=== PATIENT | female | born 1945 | race Caucasian/White ===

== ENCOUNTER 2021-02-21 22:38 | Emergency (ER) | payer MEDICARE, BC, SELFPAY ==
--- NOTE | ~2021-02-21 | CT_ITS ---
EXAMINATION: CT HEAD WITHOUT CONTRAST CT CERVICAL SPINE WITHOUT CONTRAST CT MAXILLOFACIAL WITHOUT CONTRAST CLINICAL INFORMATION: Fall. On anticoagulation. COMPARISON: None TECHNIQUE: Contiguous axial imaging was performed from the skull base to vertex without intravenous administration of contrast. Contiguous axial CT images of the cervical spine were obtained without contrast. Contiguous axial CT images of the maxillofacial bones were obtained without contrast. Sagittal and coronal reformats were provided and reviewed. This CT examination was performed using dose optimization techniques as appropriate, variously including the following: *Automated exposure control. *Adjustment of mA and/or kV according to patient size (this includes techniques or standardized protocols for targeted exams where dose is matched to indication/reason for exam; i.e. extremities or head). *Use of iterative reconstruction technique. DLP: 1668 mGy-cm FINDINGS: HEAD: There is no evidence of acute intracranial hemorrhage or territorial infarction. No abnormal mass effect or midline shift is seen. Gjzz-qc-[id number] matter differentiation is well preserved. No extra-axial fluid collections are identified. The ventricles are normal in size. There is no abnormal attenuation within the brain parenchyma. No acute fracture. Soft tissue swelling overlying the left orbit and left maxilla. The mastoid air cells and visualized portions of the paranasal sinuses are well aerated. CERVICAL SPINE: Straightening of the normal cervical lordosis, which may be positional or related to muscular spasm. No acute fracture. Grade 1 anterolisthesis of C2 on C3 and C3 on C4 which appears chronic. No loss of vertebral body height. Multilevel loss of intervertebral disc height with endplate degenerative changes and endplate osteophytes. Prominent multilevel bilateral facet arthropathy. No lytic or blastic osseous lesion. Unremarkable prevertebral soft tissues. No abnormal soft tissue mass or fluid collection. Thyroid within normal limits. Visualized lung apices are clear. [id number] multilevel bilateral neural foraminal stenosis. MAXILLOFACIAL: Prominent soft tissue swelling overlying the left side of the face including the maxillary and orbital regions. No large hematoma. There is no acute maxillofacial fracture. The pterygoid plates are intact. The zygomatic arches are intact. The lamina papyracea are intact. The orbital rims are intact. The paranasal sinuses are well-aerated. No air-fluid levels are seen. There is mild rightward deviation of the nasal septum. The ostiomeatal complexes are clear. The lamina papyracea are intact. The ethmoid roofs are symmetric. The carotid canals are normally covered by bone. There is no maxillary periapical disease. The mastoid air cells and visualized middle ear cavities are well-aerated. The orbits are normal. Severe left temporomandibular joint osteoarthritis with bony remodeling. The imaged portions of the brain demonstrate no acute abnormality. CT/CT cervical spine wo con IMPRESSION: HEAD: No acute intracranial hemorrhage or mass effect. CERVICAL SPINE: No acute fracture or subluxation. Straightening of the normal cervical lordosis which may be positional or related to muscular spasm. Chronic grade 1 anterolisthesis of C2 on C3 and C3 on C4. Prominent multilevel degenerative disc disease with bilateral facet arthropathy and [id number] multilevel bilateral neural foraminal stenosis. MAXILLOFACIAL: Prominent left-sided facial swelling overlying the maxilla and orbit. No large soft tissue hematoma. No fracture. Severe left temporomandibular joint osteoarthritis.
[2021-02-21 22:47] VITALS: BP 118/78; PULSE 74; O2SAT 94
--- NOTE | 2021-02-21 22:51 | PC.NURSE ---
pt just moved to area, family not around here. will need assistance in getting home. Takes Dimple
--- NOTE | 2021-02-21 23:36 | ED.FALL ---
HPI - Fall General Chief Complaint: Fall Stated Complaint: FAll Time Seen by Provider: 02/21/21 22:49 Source: patient Mode of arrival: EMS Limitations: no limitations History of Present Illness HPI Narrative: Patient is on Brilinta had a mechanical fall while trying to turn on the light lost balance and fell hitting her left cheek with a chair came with swelling of the left cheekbone no loss of consciousness injuries no loss of consciousness no seizures patient otherwise feels okay vision is normal vision is normal Related Data Allergies Allergy/AdvReac Type Severity Reaction Status Date / Time hydromorphone [From Dilaudid] Allergy Difficulty Verified 02/21/21 23:46 Breathing Iodinated Contrast Media Allergy Anaphylaxis Verified 02/21/21 23:46 [Contrast Dye] Review of Systems Review of Systems: Yes all other systems are reviewed and are negative [facility] Past Medical History Medical History (Updated 02/22/21 @ 00:06 by Willian Mcginnis MD) Arthritis Hypertension Myocardial infarct Surgical History (Updated 02/21/21 @ 23:44 by Mechelle Rutherford) Stented coronary artery Social History Social History Patient Tobacco Use Status: Never used Tobacco Advance Directives: No Physical Exam Vital Signs: Vital Signs: Last Vital Signs Temp 97.7 F 02/21/21 23:41 Pulse 64 02/21/21 23:41 Resp 16 02/21/21 23:41 BP 150/72 H 02/21/21 23:41 Pulse Ox 98 02/21/21 23:41 Body Mass Index 43.9 Appearance: Alert. Oriented X3. No acute distress. Eyes: PERRLA, No Nystagmus HEENT: Pharynx normal. Oral Mucosa moist swelling of the left cheek bone Neck: Normal inspection. Neck supple. CVS: Normal heart rate and rhythm. Pulses normal. Respiratory: No respiratory distress. Equal air entry bilateral, Abdomen: Soft and nontender. Bowel sounds are present, no mass palpable, no CVA tenderness Skin: Skin warm and dry. Normal skin color. Normal skin turgor. Extremities: No lower extremity edema. No calf tenderness Neuro: Oriented X 3. No motor deficit. No sensory deficit.No cerebellar signs , cranial nerves II-XII intact HENMT: Head images: 1. Ecchymosis of left cheek wound EOMI PERRLA, teeth are intact nontender MDM - Fall MDM Narrative Medical decision making narrative: Patient Status post mechanical fall CT scan of the face head and C-spine negative except for ecchymosis on the left face. Will Discharge patient home Discharge Plan Discharge Clinical Impression: Fall Qualifiers: Encounter type: initial encounter Qualified Code(s): W19.XXXA - Unspecified fall, initial encounter Facial bruising Qualifiers: Encounter type: initial encounter Qualified Code(s): S00.83XA - Contusion of other part of head, initial encounter Patient Disposition: Home, Self-Care Instructions: Fall Prevention (ED), Facial Contusion (ED) Additional Instructions: Apply ice pack Care as advised Follow-up with PCP if any concerns
[2021-02-21 23:41] VITALS: BP 150/72; PULSE 64; RESP 16; TEMP 36.5; O2SAT 98; BMI 43.9
--- NOTE | 2021-02-21 23:47 | PC.NURSE ---
Pt returns from CT, resting in bed, awaiting results, denies pain.
[2021-02-22 00:58] VITALS: RESP 20
--- NOTE | 2021-02-22 00:58 | PC.NURSE ---
EMS at bedside for transport.
== END 2021-02-22 01:00 | disposition home or self-care (01) ==
LOC: HO.ED 02-22 00:21
PROVIDERS: Emergency Provider Internal Medicine
DX: S00.83XA Contusion of other part of head, initial encounter (principal); I10 Essential (primary) hypertension; I25.2 Old myocardial infarction; W18.30XA Fall on same level, unspecified, initial encounter; Y93.9 Activity, unspecified; Y92.9 Unspecified place or not applicable; Y99.9 Unspecified external cause status
CPT/HCPCS: 70450; 70486; 72125; 99284

== ENCOUNTER 2022-05-12 07:40 | Emergency (ER) | payer MEDICARE, BC, SELFPAY ==
[2022-05-12 07:48] VITALS: BP 147/77; PULSE 73; RESP 18; TEMP 36.3; BMI 44.8
--- OUTSIDE RECORDS SUMMARY | 2022-05-12 07:51 | XMS_ITS | Continuity of Care Document ---
:1945 Author Organization [facility] Address [address] [place] [address]- Care Team Providers Name Role Phone Jhonny RIVAS, Page Wise Primary Care Physician [phone] [place] [facility] 01/05/21 - 01/06/[address] [address] Discharge Disposition: A-D/C Home Attending Physician: Corey Saenz MD Admitting Physician: Corey Saenz MD Referring Physician: Corey Saenz MD Allergies, Adverse Reactions, Alerts Substance Reaction Severity Status Dilaudid pass out Active contrast media (iodine-based) anaphylaxis Ac tive Immunizations Given and Recorded Vaccine Date Status Refusal Reason SARS-CoV-2 (COVID-19) mRNA-1273 vaccine 07/15/20 Given SARS-CoV-2 (COVID-19) mRNA-1273 vaccine 06/17/20 Given Medications Adderall XR 15 mg oral capsule, extended release 1 capsule = 15 mg, By Mouth, Daily in AM, 0 Refills, Maintenance, 12/24/20 11:53:00 EDT, ER Capsule,Partial fill upon patient request if the prescription is for a schedule II opioid drug. Start Date: 12/24/20 Status: OrderedAspirin Low Dose 81 mg oral delayed release tablet 1 tablet = 81 mg, By Mouth, Daily, 0 Refills, Maintenance, 09/24/20 14:34:00 EDT, Partial fill upon patient request if the prescription is for a schedule II opioid drug. Start Date: 09/24/20 Status: OrderedBrilinta (ticagrelor) 60 mg oral tablet 1 tablet = 60 mg, By Mouth, 2 times a day, # 60 tablet, 0 Refills, Maintenance, 09/24/20 14:35:00 EDT, Tablet, Partial fill upon patient request if the prescription is for a schedule II opioid drug. Start Date: 09/24/20 Status: Orderedduloxetine 60 mg oral enteric coated capsule 1 capsule = 60 mg, By Mouth, 2 times a day, do not crush or chew, # 60 capsule, 0 Refills, Maintenance, 09/24/20 14:35:00 EDT, CR Capsule, Partial fill upon patient request if the prescription is for aschedule II opioid drug. Start Date: 09/24/20 Status: Orderedgabapentin 300 mg oral capsule 300 mg, 1, capsule, By Mouth, 2 times a day, Refills 0, Maintenance, 09/24/20 14:41:00 EDT, Partial fill upon patient request if the prescription is for a schedule II opioid drug. Start Date: 09/24/20 Status: Orderedhydroxychloroquine 200 mg oral tablet 400 mg, 2, tablet, By Mouth, Daily, # 60 tablet, Refills 0, Maintenance, 09/24/20 14:36:00 EDT, Partial fill upon patient request if the prescription is for a schedule II opioid drug. Start Date: 09/24/20 Status: Orderedisosorbide mononitrate 60 mg oral tablet, extended release 60 mg, 1, tablet, By Mouth, Daily in AM, # 30 tablet, Refills 0, Maintenance, 09/24/20 14:37:00 EDT,Partial fill upon patient request if the prescription is for a schedule II opioid drug. Start Date: 09/24/20 Status: Orderedleflunomide 20 mg oral tablet 1 tablet = 20 mg, By Mouth, Daily, # 30 tablet, 0 Refills, Maintenance, 09/24/20 14:37:00 EDT, Tablet, Partial fill upon patient request if the prescription is for a schedule II opioid drug. Start Date: 09/24/20 Status: Orderedlevothyroxine 0.1 mg oral tablet 1 tablet = 100 mcg, By Mouth, Daily, # 30 tablet, 0 Refills, Maintenance, 09/24/20 14:37:00 EDT, Tablet, Partial fill upon patient request if the prescription is for a schedule II opioid drug. Start Date: 09/24/20 Status: Orderedlisinopril 20 mg oral tablet 20 mg, 1, tablet, By Mouth, Daily, # 30 tablet, Refills 0, Maintenance, 09/24/20 14:38:00 EDT, Partial fill upon patient request if the prescription is for a schedule II opioid drug. Start Date: 09/24/20 Status: OrderedLORazepam 0.5 mg oral tablet 1 tablet = 0.5 mg, By Mouth, Daily at bedtime, PRN as needed for anxiety, PRN at Bedtime, 0 Refills,Maintenance, 09/24/20 14:38:00 EDT, Partial fill upon patient request if the prescription is for a schedule II opioid drug. Start Date: 09/24/20 Status: Orderedmetoprolol 100 mg oral tablet, extended release 100 mg, XL Tablet, By Mouth, 01/06/21 9:00:00 EDT Start Date: 01/06/21 Stop Date: 01/06/21 Status: Completedmetoprolol 100 mg oral tablet, extended release 100 mg, 1, tablet, By Mouth, Daily, # 30 tablet, Refills 0, Maintenance, 09/24/20 14:39:00 EDT, Partial fill upon patient request if the prescription is for a schedule II opioid drug. Start Date: 09/24/20 Status: OrderedoxyCODONE 5 mg oral tablet 5 mg, 1, tablet, By Mouth, Every 6 hours, PRN, for 3 days, # 12 tablet, Refills 0, Tot. Refills 0, Acute 01/08/21 13:23:00 EDT, as needed for pain, 01/05/21 13:23:00 EDT, Route to Pharmacy Electronically, [facility], Partial fill upon pa... Start Date: 01/05/21 Stop Date: 01/08/21 Status: OrderedoxyCODONE 5 mg oral tablet 5 mg, Tablet, By Mouth, Every 6 hours, PRN for Pain , Severe, Routine, 01/05/21 14:28:00 EDT Start Date: 01/05/21 Stop Date: 01/12/21 Status: Orderedpantoprazole 40 mg oral delayed release tablet 1 tablet = 40 mg, By Mouth, 2 times a day, # 30 tablet, 0 Refills, Maintenance, 09/24/20 14:39:00 EDT, EC Tablet Start Date: 09/24/20 Status: Orderedrosuvastatin 40 mg oral capsule 1 capsule = 40 mg, By Mouth, Daily, # 30 capsule, 0 Refills, Maintenance, 09/24/20 14:39:00 EDT, Capsule, Partial fill upon patient request if the prescription is for a schedule II opioid drug. Start Date: 09/24/20 Status: OrderedsulfaSALAzine 500 mg oral tablet 1 tablet = 500 mg, By Mouth, 2 times a day, # 60 tablet, 0 Refills, Maintenance, 09/24/20 14:40:00 EDT, Tablet, Partial fill upon patient request if the prescription is for a schedule II opioid drug. Start Date: 09/24/20 Status: Orderedtolterodine 2 mg oral capsule, extended release 1 capsule = 2 mg, By Mouth, Daily, # 30 capsule, 0 Refills, Maintenance, 09/24/20 14:40:00 EDT, CR Capsule, Partial fill upon patient request if the prescription is for a schedule II opioid drug. Start Date: 09/24/20 Status: OrderedtraZODone 100 mg oral tablet 100 mg, 1, tablet, By Mouth, Daily at bedtime, Refills 0, Maintenance, 09/24/20 14:41:00 EDT, Partial fill upon patient request if the prescription is for a schedule II opioid drug. Start Date: 09/24/20 Status: OrderedTylenol 325 mg oral tablet 650 mg, 2, tablet, By Mouth, Every 4 hours, PRN, for 10 days, # 60 tablet, Refills 0, Tot. Refills 0, Acute 01/15/21 12:17:00 EDT, for fever, 01/05/21 12:17:00 EDT, Route to Pharmacy Electronically, [facility], Partial fill upon patient... Start Date: 01/05/21 Stop Date: 01/15/21 Status: OrderedTylenol 325 mg oral tablet 975 mg, Tablet, By Mouth, 01/06/21 9:00:00 EDT Start Date: 01/06/21 Stop Date: 01/06/21 Status: Completed Problem List Condition Effective Dates Status Health Status Informant Hiatal hernia with GERD and Active esophagitis(Confirmed) Vital Signs Most recent to oldest 1 2 3 [Reference Range]: Height 157.48 cm 157.48 cm (01/05/21 9:17 AM) (12/24/20 11:44 AM) Oxygen Saturation [94-100 %] 95 % 98 % 96 % (01/06/21 8:00 AM) (01/06/21 3:00 AM) (01/05/21 11: 00 PM) Pulse Rate [55-90 bpm] 71 bpm 69 bpm 67 bpm (01/06/21 8:22 AM) (01/06/21 3:00 AM) (01/05/21 11: 00 PM) Blood Pressure [90-138/55-84 137/56 mm Hg 102/61 mm Hg 112 /55 mm Hg mm Hg] (01/06/21 8:22 AM) (01/06/21 3:00 AM) (01/05/21 11: 00 PM) Respiratory Rate [16-30 18 br/min 18 br/min 18 br/mi n br/min] (01/06/21 9:22 AM) (01/06/21 9:22 AM) (01/06/21 8:2 2 AM) Temperature [96.8-100.4 DegF] 97.9 DegF 97.5 DegF 97 .7 DegF (01/06/21 8:00 AM) (01/06/21 3:00 AM) (01/05/21 11: 00 PM) Liters per Minute 2 L/min 2 L/min 2 L/min (01/05/21 2:00 PM) (01/05/21 1:45 PM) (01/05/21 1:3 0 PM) Mode of Delivery (Oxygen) Room air Room air Room a ir (01/06/21 8:00 AM) (01/06/21 3:00 AM) (01/05/21 11: 00 PM) Blood pressure sites Arm, left Arm, left Arm, left (01/06/21 8:00 AM) (01/06/21 3:00 AM) (01/05/21 11: 00 PM) Temperature Route Oral Oral Oral (01/06/21 8:00 AM) (01/06/21 3:00 AM) (01/05/21 11: 00 PM) Dry Weight 109.81 kg 109.09 kg (01/05/21 9:17 AM) (12/24/20 11:44 AM) Dry Weight Obtained Via Standing scale (01/05/21 9:17 AM) Social History Social History Type Response Smoking Status Never (less than 100 in life time) entered on: 09/24/20 Sex Female
--- OUTSIDE RECORDS SUMMARY | 2022-05-12 07:51 | XMS_ITS | Continuity of Care Document ---
:1945 Author Organization [facility] Address [address] [place] [address]- Care Team Providers Name Role Phone Not on Staff, PCP Primary Care Physician Unavailable Encounter [facility] Date(s): 06/03/19 - 06/13/19 [facility] [address] [place] [phone]- [facility] Attending Physician: trTae Admitting Physician: Tae Latif Referring Physician: tr Ar8 Social History Social History Type Response Sex Female
--- OUTSIDE RECORDS SUMMARY | 2022-05-12 07:51 | XMS_ITS | Continuity of Care Document ---
:1945 Author Organization [facility] Address [address] [place] [address]- Care Team Providers Name Role Phone Not on Staff, PCP Primary Care Physician Unavailable Encounter [facility] Date(s): 04/15/20 - 05/15/[address] [address]- Attending Physician: Tae Latif Admitting Physician: Tae Latif Referring Physician: Tae Latif Social History Social History Type Response Sex Female
--- OUTSIDE RECORDS SUMMARY | 2022-05-12 07:51 | XMS_ITS | Continuity of Care Document ---
:1945 Author Organization [facility] Address [address] [place] [address] Drive [address] [place] [address]- Care Team Providers Name Role Phone Not on Staff, PCP Primary Care Physician Unavailable Encounter [facility] Date(s): 07/29/20 - 08/28/[address] [place] [address]- Immunizations Given and Recorded Vaccine Date Status Refusal Reason SARS-CoV-2 (COVID-19) mRNA-1273 vaccine 07/15/20 Given SARS-CoV-2 (COVID-19) mRNA-1273 vaccine 06/17/20 Given Social History Social History Type Response Sex Female
--- OUTSIDE RECORDS SUMMARY | 2022-05-12 07:51 | XMS_ITS | Continuity of Care Document ---
:1945 Author Organization [facility] Address Unavailable , Care Team Providers Name Role Phone Jhonny RIVAS, Page Wise Primary Care Physician Encounter [facility] Date(s): 01/26/21 - 02/25/21 [facility] Attending Physician: Tae Latif Admitting Physician: Tae Latif Referring Physician: trTae Allergies, Adverse Reactions, Alerts Substance Reaction Severity [...] II opioid drug. Start Date: 09/24/20 Status: Orderedpantoprazole 40 mg oral delayed release [...] II opioid drug. Start Date: 09/24/20 Status: Ordered Problem List Condition Effective Dates Status Health Status Informant Hiatal hernia with GERD and Active esophagitis(Confirmed) Social History Social History Type Response Smoking Status Never (less than 100 in life time) entered on: 09/24/20 Sex Female
--- OUTSIDE RECORDS SUMMARY | 2022-05-12 07:51 | XMS_ITS | Continuity of Care Document ---
:1945 Author Organization [facility] Address [address] [place] [address] Drive [address] [place] [address]- Care Team Providers Name Role Phone Not on Staff, PCP Primary Care Physician Unavailable Encounter [facility] [place] Date(s): 09/24/20 - 10/01/[address] [place] [address]- Encounter Diagnosis Hiatal hernia with GERD and esophagitis (Discharge Diagnosis) - 09/24/20 Attending Physician: Corey Saenz MD Referring Physician: Not on Staff, Referring MD Allergies, Adverse Reactions, Alerts Substance Reaction Severity Status Dilaudid pass out Active contrast media (iodine-based) Ac tive Immunizations Given and Recorded Vaccine Date Status Refusal Reason SARS-CoV-2 (COVID-19) mRNA-1273 vaccine 07/15/20 Given SARS-CoV-2 (COVID-19) mRNA-1273 vaccine 06/17/20 Given Medications Adderall 5 mg oral tablet 1 tablet = 5 mg, By Mouth, 2 times a day, # 60 tablet, 0 Refills, Maintenance, 09/24/20 14:41:00 EDT, Tablet, Partial fill upon patient request if the prescription is for a schedule II opioid drug. Start Date: 09/24/20 Status: OrderedAspirin Low Dose 81 mg oral delayed release tablet 1 tablet = 81 mg, By Mouth, Daily, 0 Refills, Maintenance, 09/24/20 14:34:00 EDT, Partial fill upon patient request if the prescription is for a schedule II opioid drug. Start Date: 09/24/20 Status: OrderedBrilinta (ticagrelor) 60 mg oral tablet 1 tablet = 60 mg, By Mouth, Daily, # 60 tablet, 0 Refills, Maintenance, 09/24/20 14:35:00 EDT, Tablet, Partial fill upon patient request if the prescription is for a schedule II opioid drug. Start Date: 09/24/20 Status: Orderedduloxetine 60 mg oral enteric coated capsule 2 capsule = 120 mg, By Mouth, Daily, do not crush or chew, # 60 [...] 1 tablet = 0.5 mg, By Mouth, 3 times a day, PRN at Bedtime, 0 Refills, Maintenance, 09/24/20 14:38:00 EDT, Partial fill upon [...] 1 tablet = 40 mg, By Mouth, Daily, # 30 tablet, [...] Hiatal hernia with GERD and Active esophagitis(Confirmed) Diagnosis Diagnosis Type Effective Dates Health Clinical Infor mant Status Service Hiatal hernia with Discharge 09/24/20 GERD and Diagnosis esophagitis Vital Signs Most recent to oldest [Reference Range]: 1 Height 157 cm (09/24/20 2:27 PM) Weight 102.1 kg (09/24/20 2:27 PM) Pulse Rate [55-90 bpm] 59 bpm (09/24/20 2:27 PM) Body Mass Index [18.5-24.99] 41.42 *>HHI* (09/24/20 2:27 PM) Blood Pressure [90-138/55-84 mm Hg] 132/80 mm Hg (09/24/20 2:27 PM) Respiratory Rate [16-30 br/min] 16 br/min (09/24/20 2:27 PM) Temperature [96.8-100.4 DegF] 97.6 DegF (09/24/20 2:27 PM) Blood pressure sites Arm, left (09/24/20 2:27 PM) Temperature Route Temporal (09/24/20 2:27 PM) Dry Weight 102.1 kg (09/24/20 2:27 PM) Weight Obtained Via Patient/family stated (09/24/20 2:27 PM) Social History Social History Type Response Smoking Status Never (less than 100 in life time) entered on: 09/24/20 Sex Female
--- OUTSIDE RECORDS SUMMARY | 2022-05-12 07:51 | XMS_ITS | Continuity of Care Document ---
:1945 Author Organization [facility] Address Unavailable , Care Team Providers Name Role Phone Not on Staff, PCP Primary Care Physician Unavailable Encounter [facility] [place] Date(s): 11/20/20 - 12/20/20 [facility] Allergies, Adverse Reactions, Alerts Substance Reaction Severity [...]
--- OUTSIDE RECORDS SUMMARY | 2022-05-12 07:51 | XMS_ITS | Continuity of Care Document ---
:1945 Author Organization [facility] Address Unavailable , Care Team Providers Name Role Phone Jhonny RIVAS, Page Wise Primary Care Physician [phone] Encounter [facility] [place] Date(s): 01/26/21 - 02/02/21 [facility] Encounter Diagnosis Postop check (Discharge Diagnosis) - 01/26/21 Gastric band malfunction (Discharge Diagnosis) - 01/26/21 Attending Physician: Saeed Christianson Referring Physician: Letty SHERMAN, Corey Rucker Allergies, Adverse Reactions, Alerts Substance Reaction Severity [...] Dates Health Clinical Infor mant Status Service Postop check Discharge 01/26/21 Diagnosis Gastric band Discharge 01/26/21 malfunction Diagnosis Vital Signs Most recent to oldest [Reference Range]: 1 Height 157.48 cm (01/26/21 11:13 AM) Weight 109.3 kg (01/26/21 11:13 AM) Pulse Rate [55-90 bpm] 65 bpm (01/26/21 11:13 AM) Body Mass Index [18.5-24.99] 44.07 *>HHI* (01/26/21 11:13 AM) Blood Pressure [90-138/55-84 mm Hg] 151/81 mm Hg *H* (01/26/21 11:13 AM) Blood pressure sites Arm, left (01/26/21 11:13 AM) Weight Obtained Via Standing scale (01/26/21 11:13 AM) Social History Social History Type Response Smoking Status Never (less than 100 in life time) entered on: 09/24/20 Sex Female
--- OUTSIDE RECORDS SUMMARY | 2022-05-12 07:51 | XMS_ITS | Continuity of Care Document ---
:1945 Author Organization [facility] Address [address] [place] [address] Drive [address] [place] [phone]- Care Team Providers Name Role Phone Not on Staff, PCP Primary Care Physician Unavailable Encounter [facility] Date(s): 09/24/20 - 10/24/[address] [place] [phone]- Attending Physician: Tae Latif Admitting Physician: Tae Latif Referring Physician: Admtr, Ar8 Allergies, Adverse Reactions, Alerts Substance Reaction Severity [...]
--- OUTSIDE RECORDS SUMMARY | 2022-05-12 07:51 | XMS_ITS | Continuity of Care Document ---
:1945 Author Organization [facility] Address [address] [place] [address]- Care Team Providers Name Role Phone Not on Staff, PCP Primary Care Physician Unavailable Encounter [facility] Date(s): 05/01/19 - 07/03/19 [facility] [address] [place] [address]- [facility] Attending Physician: Yadi Forde NP Social History Social History Type Response Sex Female
--- NOTE | 2022-05-12 08:11 | ED_ITS ---
HPI - Animal Bite General Chief Complaint: Animal Bite Stated Complaint: dog bite 05/12/22 @ 0530 Time Seen by Provider: 05/12/22 08:11 Source: patient and family (Son) Mode of arrival: ambulatory Limitations: no limitations History of Present Illness HPI narrative: 76-year-old female who presents emergency department for evaluation of dog bite to her left eyebrow. The patient states that her dog is a rescue dog and often the dog gets upset and will start growled and then bite. Patient states she was in bed and the dog was sleeping with her when the dog started to growl., she covered her head with the blanket but the dog attacked her and bit her above her left eyebrow. The dog did not bite her anywhere else. The patient states that she is on Brilinta and the wound blood profusely but she was able to stop the bleeding with pressure The dog's rabies vaccinations are up-to-date in the dog does not go outside. The behavior was not unusual for this dog. Patient does not know when her last tetanus shot was given. Related Data Previous Rx's Medication Instructions Recorded amoxicillin 875 mg-potassium 1 tab PO Q12H 5 days #10 tabs 05/12/22 clavulanate 125 mg tablet Allergies Allergy/AdvReac Type Severity Reaction Status Date / Time hydromorphone [From Dilaudid] Allergy Difficulty Verified 02/21/21 23:46 Breathing Iodinated Contrast Media Allergy Anaphylaxis Verified 02/21/21 23:46 [Contrast Dye] Review of Systems Review of Systems: Yes all other systems are reviewed and are negative [facility] Past Medical History Medical History Arthritis Hypertension Myocardial infarct Surgical History Stented coronary artery Social History Social History Patient Tobacco Use Status: Never used Tobacco Smoked in Last 30 Days: No Use of substances other than those prescribed or required for medical reasons: No Advance Directives: No Physical Exam ED Vital Signs: Vital Signs - 24 hr 05/12/22 07:48 Temperature 97.4 F Pulse Rate 73 Respiratory Rate 18 Blood Pressure 147/77 H BMI result Body Mass Index 44.8 Const Other: Awake, alert, female patient, very pleasant cooperative, does not appear to be in distress HEENT: The patient has a C-shaped laceration above her left eyebrow measuring 2.5 cm in length, the laceration is full skin thickness, there is no active bleeding. Pupils were equal round reactive light, extraocular muscles intact, no other injuries to her face noted Medications Administered Discontinued Medications Generic Name Dose Route Start Last Admin Trade Name Praveenq PRN Reason Stop Dose Admin Amoxicillin/Clavulanate Potassium 875 mg 05/12/22 09:25 05/12/22 09:35 Amoxicillin/Potassium Clav 875 Mg Tablet PO 05/12/22 09:26 875 mg ONCE ONE Administration Diphtheria/Tetanus/Acell Pertussis 0.5 ml 05/12/22 08:26 05/12/22 08:37 Diphth,Pertus(Acell),Tet Adult 0.5 Ml Syringe IM 05/12/22 08:27 0.5 ml .ONCE ONE Administration Lidocaine/Epinephrine 30 ml 05/12/22 08:35 05/12/22 09:36 Lidocaine Hcl 1% Pf/Epi 1:200,000 30 Ml Vial INFILTRATI 05/12/22 08:36 30 ml ONCE ONE Administration Medical Decision Making Medical Decision Making MDM Narrative: 76-year-old female who presents emergency department for evaluation of a dog bite above her left eyebrow from her own dog. The dog is had similar attacks in the past and the dog is not been ill in any way. The dog does not go outside and the dog's rabies vaccinations are up-to-date. This is a low risk wound for rabies. This is probably a low risk for tetanus as well however patient's tetan us was not up-to-date therefore she was given a Tdap. I did discuss repair of dog bites with the patient, given the extent of this laceration and the fact that she is on Brilinta I believe that repairing this wound with lead to better healing and stop recurrent bleeding. I did discuss the risks and benefits especially and a dog room to the possibility of bacterial contamination. The patient did concur with my decision and the patient's laceration was repaired. I repaired the wound with 4.0 nylon sutures x5 sutures. Patient's Tdap was updated. Patient was started prophylactically on Augmentin 875/125 every 12 hours times 5 days to try to prevent infection from this dog bite. She was given her 1st dose here in the emergency department. Patient was given printed and verbal instructions discharged home Differential Diagnosis Differential Diagnoses: The differential diagnosis associated with the presentation includes Dog bite, rabies exposure, tetanus exposure Procedures Procedure Narrative Procedure Narrative: 2.5 cm Left eyebrow dog bite/laceration repair: I did discuss the risks and benefits of repairing this wound to the patient did give me informed verbal consent to proceed. The wound was initially cleaned with normal saline and then your gated with normal saline under pressure, 250 cc was used. The wound was prepped with Betadine. The wound was anesthetized with 5 cc of 1% lidocaine with epinephrine. The wound was explored and I did not see any foreign bodies within the wound. the wound was undermined and closed in 1 layer using 4.0 nylon sutures for total of 5 sutures. Bacitracin was applied to the wound by the nurse and a gauze dressing was applied. The patient tolerated the procedure well. Discharge Plan Discharge Clinical Impression: Bite by animal Laceration of eyebrow, left Qualifiers: Encounter type: initial encounter Qualified Code(s): S01.112A - Laceration without foreign body of left eyelid and periocular area, initial encounter Patient Disposition: Home, Self-Care Instructions: Facial Laceration (ED) Additional Instructions: You received 5 stitches to the cut over your left eyebrow. The stitches need to be removed in 7-10 days either by your doctor, and urgent care clinic or the emergency department. Apply bacitracin twice a day to the wound until the stitches removed. I am starting you prophylactically on Augmentin 875/125, 1 pill every 12 hours for 5 days to try to prevent infection of this dog bite. Watch for signs of infection which include redness, swelling, drainage of pus, increased pain. Follow-up with your doctor in 7-10 days. Please return to the emergency department if your symptoms get worse or if you develop any symptoms that are concerning to you. Prescriptions: New amoxicillin-pot clavulanate 875-125 mg tablet 1 tab PO Q12H 5 Days Qty: 10 0RF Interventions: ED Discharge Assessment Last Done: 05/12/22 09:47 Discharge Date/Time: 05/12/22 09:48
[2022-05-12] MEDS: Diphth,Pertus(ACell),Tet Adult 0.5 ML SYRINGE IM (08:37)
[2022-05-12] MEDS: Amoxicillin/Potassium Clav 875 MG TABLET PO (09:35)
[2022-05-12] MEDS: Lidocaine HCl 1% PF/Epi 1:200,000 30 ML VIAL INFILTRATI (09:36)
--- NOTE | 2022-05-12 11:04 | PC.NURSE ---
L brow pain from dog bite. Tetanus shot given R Deltoid. pt denies pain. [address] Logan. med given as documented. vss. afebrile.
== END 2022-05-12 09:48 | disposition home or self-care (01) ==
PROVIDERS: Emergency Provider Emergency Medicine Emergency Medical Services; PCP Nurse Practitioner Family
DX: S00.212A Abrasion of left eyelid and periocular area, initial encounter (principal); W54.0XXA Bitten by dog, initial encounter; Y93.9 Activity, unspecified; Y92.9 Unspecified place or not applicable; Y99.9 Unspecified external cause status; Z79.899 Other long term (current) drug therapy; Z23 Encounter for immunization
CPT/HCPCS: 12052; 90471; 90715; 99284

== ENCOUNTER 2023-10-13 04:23 | Emergency (ER) | payer MEDICARE, BC, SELFPAY ==
[2023-10-13 04:31] VITALS: BP 116/78; PULSE 69; PULSE 87; RESP 16; TEMP 36.8; O2SAT 95; O2SAT 97; BMI 43.9
[2023-10-13 04:35] VITALS: BP 149/60; PULSE 69; RESP 16; TEMP 36.8; O2SAT 95
[2023-10-13 06:34] VITALS: BP 127/80; PULSE 66; RESP 16; TEMP 36.6; O2SAT 96
[2023-10-13] MEDS: Fluorescein Sodium STRIP 1 STRIP EYE-BOTH (07:11)
[2023-10-13] MEDS: Tetracaine HCl/PF 0.5% Oph Sol 4 ML DROPS 1 DROP EYE-BOTH (07:11)
--- NOTE | 2023-10-13 07:32 | ED.EYEPROB ---
HPI - Eye Problem General Chief complaint: Eye Problems Stated complaint: Eye Pain Time Seen by Provider: 10/13/23 06:59 Source: patient Mode of arrival: ambulatory Limitations: no limitations History of Present Illness ED Provider: DENZEL HPI Narrative: 78 yo female with PMH of CAD s/p stents, hypothyroidism, HTN, HLD notes at 230am she felt like she swatted a bug then felt a microscopic twig in her R eye since then she has a FB sensation and blurry vision in R eye. This has never happened before. EMS tried to get it out with irrigation but she notes the sensation is still there. No other complaints or issues. chief complaint: foreign body Onset (ago): hour(s) (230am) Onset description: sudden Duration: constant Location: right eye Eye Symptoms: foreign body sensation and blurry vision Place: home Mechanism: direct trauma Severity: moderate If Pain, Quality: burning Context: trauma Associated symptoms: none Treatments Prior to Arrival: irrigated eye Related Data Previous Rx's ?Medication ?Instructions ?Recorded amoxicillin 875 mg-potassium 1 tab PO Q12H 5 days #10 tabs 05/12/22 clavulanate 125 mg tablet ofloxacin 0.3 % eye drops 1 drp ophthalmic (eye) TID 5 days 10/13/23 #5 mL Allergies Allergy/AdvReac Type Severity Reaction Status Date / Time hydromorphone [From Dilaudid] Allergy Difficulty Verified 10/13/23 04:31 Breathing Iodinated Contrast Media Allergy Anaphylaxis Verified 10/13/23 04:31 [Contrast Dye] Review of Systems Review of Systems: Constitutional : No Fever, No Chills, No Fatigue ENT/Mouth : No sore throat, No Rhinorrhea Eyes: pos Eye Pain, No Swelling, No Redness Cardiovascular : No Chest Pain, No SOB, No Dyspnea on Exertion Respiratory : No Cough, No Sputum Gastrointestinal : No Nausea, No Vomiting, No Diarrhea, No abdominal Pain Skin : No Skin Lesions, No rash Neuro : No Weakness, No Numbness, No Dizziness, no Headache Psych : No Anxiety/Panic, No Depression All other systems reviewed and are negative [facility] Past Medical History Attestation statement: The following information was validated with the patient. Source: old records reviewed Medical History Hypertension Arthritis Myocardial infarct Surgical History Stented coronary artery Social History Social History Patient Tobacco Use Status: Never used Tobacco Smoked in Last 30 Days: No Use of substances other than those prescribed or required for medical reasons: No Advance Directives: Yes Advance Directives Information Provided: No Advance Directives on File: No Do you have a plan to hurt others: No Plan Physical Exam Vital Signs: Vital Signs: Last Vital Signs Temp 97.8 F 10/13/23 06:34 Pulse 66 10/13/23 06:34 Resp 16 10/13/23 06:34 BP 127/80 10/13/23 06:34 Pulse Ox 96 10/13/23 06:34 O2 Del Method Room Air 10/13/23 06:34 BMI result Body Mass Index 43.9 Appearance: Alert. Oriented X3. No acute distress. Eyes: Pupils equal, round and reactive to light. no photophobia, no discharge 20/40 in both eyes not corrected, pressure 11, under stain 2 corneal abrasions noted one at 7 o clock on iris and one just closer to the pupil itself both circular and small no ulcer noted ENT: Pharynx normal. Neck: Normal inspection. Neck supple. CVS: Normal heart rate and rhythm. Pulses normal. Respiratory: No respiratory distress. Breath sounds normal. Abdomen: Soft and non-tender. Skin: Skin warm and dry. Normal skin color. Normal skin turgor. Extremities: No trauma noted Neuro: Oriented X 3. No motor deficit. No sensory deficit. Medications Administered Discontinued Medications Generic Name Dose Route Start Last Admin Trade Name Anusha PRN Reason Stop Dose Admin Fluorescein Sodium 1 strip 10/13/23 07:00 10/13/23 07:11 Fluorescein Sodium Strip EYE-BOTH 10/13/23 07:01 1 strip ONCE ONE Administration Tetracaine HCl 1 drop 10/13/23 07:00 10/13/23 07:11 Tetracaine Hcl/Pf 0.5% Oph Liz 4 Ml Drops EYE-BOTH 10/13/23 07:01 1 drop ONCE ONE Administration Medical Decision Making Medical Decision Making MDM Narrative: 78 yo female with PMH of CAD s/p stents, hypothyroidism, HTN, HLD here with acute onset FB sensation to the eye she has symmetric vision in both eyes she has normal pressures there is abrasion noted I do not see FB with eversion of the lids. At this time will treat as abrasion and place on ointment. She has slowly improved during visit stained eye pressure acuity of eye everted lids Differential Diagnosis Differential Diagnoses: The differential diagnosis associated with the presentation includes corneal abrasion, conjunctivitis, eye trauma External Record Review External record reviewed: Inpatient record Prescription Management I considered prescription management with: Antibiotic and Other Discharge Plan Discharge Clinical Impression: Corneal abrasion Qualifiers: Encounter type: initial encounter Laterality: right Qualified Code(s): S05.01XA - Injury of conjunctiva and corneal abrasion without foreign body, right eye, initial encounter Patient Disposition: Home, Self-Care Instructions: Corneal Abrasion (ED) Additional Instructions: return for loss of vision, severe headache, bulging eye, redness/swelling around the eye or any other concerns. follow up with eye doctor next week Prescriptions: New ofloxacin 0.3 % drops 1 drp ophthalmic (eye) TID 5 Days Qty: 5 0RF No Action amoxicillin-pot clavulanate 875-125 mg tablet 1 tab PO Q12H 5 Days Qty: 10 0RF Print Language: Albanian
[2023-10-13] MEDS: Erythromycin Base 0.5% Oph Oin 1 GM TUBE 1 CM EYE-RIGHT (07:54)
[2023-10-13 08:06] VITALS: BP 127/80; PULSE 66; RESP 16; TEMP 37.1; O2SAT 96
== END 2023-10-13 08:07 | disposition home or self-care (01) ==
PROVIDERS: Emergency Provider Emergency Medicine
DX: S05.01XA Injury of conjunctiva and corneal abrasion without foreign body, right eye, initial encounter (principal); H57.11 Ocular pain, right eye; X58.XXXA Exposure to other specified factors, initial encounter; Y93.9 Activity, unspecified; Y92.9 Unspecified place or not applicable; Y99.8 Other external cause status
CPT/HCPCS: 99283; 99284